=== PATIENT | male | born 1935 | race Caucasian/White ===

== ENCOUNTER 2024-04-29 10:34 | Outpatient (CLI) | payer OTHER, SELFPAY | END 2024-04-29 10:35 | disposition home or self-care (01) | PROVIDERS: Visit Provider Nurse Practitioner Family | DX: E11.9 Type 2 diabetes mellitus without complications (principal); E53.8 Deficiency of other specified B group vitamins; I10 Essential (primary) hypertension; E78.5 Hyperlipidemia, unspecified; Z12.5 Encounter for screening for malignant neoplasm of prostate | CPT/HCPCS: 80053; 80061; 82043; 82570; G0103 ==